=== PATIENT | female | born 1975 | race Caucasian/White ===

== ENCOUNTER 2023-07-24 18:25 | Emergency (ER) | payer OTHER, SELFPAY ==
[2023-07-24 18:26] VITALS: BP 146/82; PULSE 88; RESP 18; TEMP 36.6; O2SAT 99; BMI 22.5
--- NOTE | 2023-07-24 19:57 | EX.ED.UPPERE ---
HPI History of Present Illness Chief Complaint: Upper Extremity Injury Narrative Narrative: 47-year-old female past medical history of multiple concussions presents with pain in her left forearm, and a small lump in her left wrist that she noticed today. 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 She felt a knot in her forearm muscle. She then noticed a small lump on her left wrist. She denies any exacerbating or alleviating factors. She is concerned about a blood clot. She does relate history that she was experiencing vertigo, and she had a CT and an IV placed in her right antecubital fossa, but there was no venipuncture on the left at all. No chest pain or shortness of breath. No exacerbating or alleviating factors. PFSH PFSH Allergy/AdvReac Type Severity Reaction Status Date / Time No Known Allergies Allergy Verified 07/24/23 18:28 Social History Smoking Status: Never smoker ROS ROS ED ROS Narrative Constitutional: No fever, no chills. HEENT: No sore throat. No neck pain. No loss of vision. No rhinorrhea. Cardiovascular: No chest pain. No palpitations. No pedal edema. Respiratory: No cough, no shortness of breath. Abdominal: No abdominal pain. No nausea. No vomiting. Genitourinary: No dysuria. No hematuria. Musculoskeletal: Positive left forearm pain and not in muscle. No arthralgias. Positive lump on left wrist that just appeared. Neurologic: No headaches. No dizziness. No lightheadedness. Skin: No rash. No change in color. Psychiatric: No depression. No anxiety. EXAM Physical Exam Narrative Exam Narrative: Afebrile. Vital signs noted. HEENT: Normocephalic. Atraumatic. PERRL, EOMI. Neck soft and supple. No point tenderness or step off. Cardiovascular: Regular rate and rhythm. No murmurs, rubs, or gallops appreciated. Respiratory: No tachypnea. Lungs clear to auscultation bilaterally. Gastrointestinal: Abdomen soft, nontender, with normoactive bowel sounds. No rebound or guarding. Neurological: Awake. Alert. Nonfocal, nonlateralizing. Skin: No rash. Normal color. No pallor. Musculoskeletal: No pedal edema. Full range of motion extremities. No erythema or circumferential swelling. Palpable radial pulse. Questionable ganglion cyst on left wrist over distal radius. Const Vital Signs: 07/24/23 18:26 Temperature 98 F Temperature Source Temporal Pulse Rate 88 Respiratory Rate 18 Blood Pressure 146/82 H Blood Pressure Mean 103 Pulse Ox 99 Oxygen Delivery Method Room Air MDM MDM MDM Narrative Medical decision making narrative: In the differential diagnosis is ganglion cyst versus venous aneurysm. I have low suspicion for superficial thrombophlebitis or deep venous thrombophlebitis. She did not have venipuncture on that side. Patient was reassured. I did discuss with her the utility of ultrasound of the left upper extremity, but she declined. I feel she can be discharged to follow-up with her primary care provider in [place]. She was reassured. She was told to seek medical attention with new or worsening symptoms. Disposition is discharged home in stable condition. Discharge Plan Triage Chief Complaint: Upper Extremity Injury ED Provider: Keaton Ray Dx/Rx/DC Orders Clinical Impression: Left forearm pain, Ganglion cyst of dorsum of left wrist Instructions: ED Ganglion Cyst, ED Pain, Acute, Uncertain Cause Primary Care Provider: Aura Perry,Out of Referrals: Aura Perry,Out of [Primary Care Provider] - Activity Restrictions/Additional Instructions: Follow-up with your primary care provider tomorrow. Print Language: Urdu Disposition Disposition: Home, Self Care
[2023-07-24 20:02] VITALS: BP 117/85; PULSE 68; RESP 16; TEMP 37.1; O2SAT 98
== END 2023-07-24 20:21 | disposition home or self-care (01) ==
LOC: ED 20:20
PROVIDERS: Emergency Provider Emergency Medicine; Visit Provider Emergency Medicine
DX: M67.432 Ganglion, left wrist (principal); M79.632 Pain in left forearm
CPT/HCPCS: 99282